=== PATIENT | female | born 1995 | race Caucasian/White ===

== ENCOUNTER → 2016-07-26 | Outpatient (CLI) | payer BC ==
--- NOTE | 2016-07-26 15:02 | RAD ---
Indication injury, pain. AP oblique and lateral views of the right ankle were obtained. Similar AP oblique and lateral views of the right foot were also obtained. The ankle is unremarkable. No bony abnormality is seen. The foot is also unremarkable. No bony abnormality is seen. IMPRESSION: Normal plain film imaging of the right foot and ankle
== END | disposition home or self-care (01) ==
LOC: DXRAD 14:24
PROVIDERS: ATTEND Nurse Practitioner Family
DX: M25.571 Pain in right ankle and joints of right foot (principal); X58.XXXD Exposure to other specified factors, subsequent encounter
CPT/HCPCS: 73610; 73630